=== PATIENT | female | born 1970 | race Two or more races ===

== ENCOUNTER 2023-10-27 20:35 | Emergency (ER) | payer OTHER ==
[~2023-10-27] VITALS: Ht 157.5 cm; Wt 53.2 kg
[2023-10-27 21:20] LABS: Basophils # (auto) 0 10 ^3/uL (0-0.2); Basophils % (auto) 0.8 % (0.0-2.0); Eosinophils # (auto) 0.2 10 ^3/uL (0-0.8); Eosinophils % (auto) 3.8 % (0.0-7.0); Hematocrit 37.8 % (36.0-46.0); Hemoglobin 12.8 g/dL (12.2-16.2); Lymphocytes # (auto) 1.5 10 ^3/uL (0.4-5.4); Lymphocytes % (auto) 31.1 % (10.0-50.0); Mean Corpuscular Hemoglobin 30.5 pg (28.0-32.0); Mean Corpuscular Hgb Conc. 33.8 g/dL (32.0-36.0); Mean Corpuscular Volume 90.5 fL (80.0-100.0); Monocytes # (auto) 0.4 10 ^3/uL (0-1.3); Monocytes % (auto) 8.7 % (0.0-12.0); Neutrophils # (auto) 2.7 10 ^3/uL (1.6-8.6); Neutrophils % (auto) 55.6 % (37.0-80.0); Nucleated Red Blood Cells % 0.1 %; Red Blood Cells 4.18 10^6/uL (4.0-5.20); Red Cell Distribution Width 14.1 % (11.8-14.3); White Blood Cell 4.8 10^3/uL (4.4-10.8)
[2023-10-27] MEDS: IPRATROPIUM BROM 0.5 MG/2.5ML INH SOL NEB ONE (21:20)
[2023-10-27] MEDS: ALBUTEROL SULF 2.5 MG/0.5ML(0.5%) NEB SOLN NEB ONE (21:21)
[2023-10-27 21:43] LABS: Alanine Aminotransferase 25 U/L (7-40); Albumin 4.2 g/dL (3.2-4.8); Alkaline Phosphatase 113 U/L (46-116); Anion Gap 2 (5-15); Aspartate Aminotransferase 22 U/L (13-40); BUN/Creatinine Ratio 19.4 (10.0-20.0); Bilirubin, Total 0.3 mg/dL (0.2-1.0); Blood Urea Nitrogen 20 mg/dL (9-23); Calcium 9.5 mg/dL (8.5-10.1); Carbon Dioxide 32 mmol/L (20-30); Chloride 109 mmol/L (98-107); Glucose 64 mg/dL (74-106); Sodium 143 mmol/L (136-145); Total Protein 6.9 g/dL (5.7-8.2)
[2023-10-27 22:41] LABS: Urine Bacteria None Seen /hpf (None Seen)
[2023-10-27 23:03] LABS: Urine Blood Negative /uL (Negative); Urine Clarity Turbid (Clear); Urine Color Light-Yellow (Yellow); Urine Protein, UAD Negative (Negative); Urine Specific Gravity 1.023 (1.001-1.035); Urine Urobilinogen Normal (Negative); Urine WBC 30 /hpf (0 - 5)
[2023-10-27] MEDS: methylPREDNISolone SOD SUCC 125 MG/2 ML VL IV ONE (23:05)
[2023-10-28] MEDS ORDERED: cefTRIAXone W LIDOCAINE 1 GM IM IM ONE (00:15)
[2023-10-28] MEDS ORDERED: ALBU108A5 IN (00:21)
[2023-10-28] MEDS ORDERED: CEPH500C PO (00:21)
[2023-10-28] MEDS ORDERED: PRED20TA2 PO (00:21)
[2023-10-28] MEDS: cefTRIAXone 1GM/50ML D5W 50 ML IV ONE (00:28)
[2023-10-28 01:00] VITALS: BP 156/79; PULSE 63; RESP 13; TEMP 98; O2SAT 99
== END 2023-10-28 01:07 | disposition home or self-care (01) ==
LOC: ER 20:35
DX: J44.1 Chronic obstructive pulmonary disease with (acute) exacerbation (principal); N39.0 Urinary tract infection, site not specified
CPT/HCPCS: 36415; 36600; 71045; 80053; 81001; 82805; 83880; 84484; 85025; 93005; 94640; 96365; 96375; 99285; J0696; J2919; J7644